=== PATIENT | female | born 1980 | race Caucasian/White ===

== ENCOUNTER 2020-01-06 16:59 | Emergency (ER) | payer OTHER ==
[2020-01-06 18:47] LABS: CHLORIDE,CL 106 mmol/L (98-107); SODIUM,NA 142 mmol/L (136-145)
[2020-01-06 18:58] LABS: ANION GAP 12.2 mmol/L (10-20)
[2020-01-06] MEDS ORDERED: Iopamidol 612 MG/ML 100 ML Bottle IVPUSH ONE (19:10)
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
[2020-01-06] MEDS ORDERED: Take Home: Sulfamethoxazole/Trimethoprim 800-160 MG Tab, 2 Tab Pack PO ONE (20:14)
[2020-01-06] MEDS ORDERED: Sulfamethoxazole/Trimethoprim 800-160 MG Tab PO ONE ×2 (20:50)
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
== END 2020-01-06 21:07 | disposition home or self-care (01) ==
LOC: VM.ED 16:59
DX: S30.1XXA Contusion of abdominal wall, initial encounter (principal); N39.0 Urinary tract infection, site not specified; E10.9 Type 1 diabetes mellitus without complications; Z88.8 Allergy status to other drugs, medicaments and biological substances; W51.XXXA Accidental striking against or bumped into by another person, initial encounter
CPT/HCPCS: 36415; 74177; 80053; 81001; 81025; 85025; 85610; 99284; A9270; Q9967

== ENCOUNTER 2020-02-13 08:44 | Emergency (ER) | payer OTHER ==
[2020-02-13] MEDS ORDERED: Sodium Chloride 0.9% 10 ML Syringe FLUSH PRN (09:10)
[2020-02-13] MEDS ORDERED: Ketorolac 30 MG/ML SDV IVPUSH ONE (09:15)
[2020-02-13] MEDS ORDERED: Ondansetron 4 MG/2 ML SDV IVPUSH ONE (09:19)
[2020-02-13] MEDS ORDERED: Sodium Chloride 0.9% 1,000 ML IV ONE (09:28)
--- NOTE | 2020-02-13 09:28 | EDM.PDOC ---
ED HPI GENERAL MEDICAL PROBLEM - General Chief Complaint: Abdominal Pain Stated Complaint: LOWER ABDOMINAL PAIN Time Seen by Provider: 02/13/20 08:55 Source of Information: Reports: Patient History Limitations: Reports: No Limitations - History of Present Illness INITIAL COMMENTS - FREE TEXT/NARRATIVE: Patient comes into the emergency department with complaints of urinary hesitancy , frequency, urgency, burning sensation. Patient also states that she has lower abdominal pain and left flank pain. Patient does have a standing history of UTI and kidney infections in the past. Patient states she woke up around 430 this morning and noticed that she had hesitancy and frequency but also at the same time she was unable to go. She was able to go decrease in amount. States she is also unable to get comfortable for the pain is sharp shooting and stabbing. Endorses feeling nauseated with this but has not vomited. Patient denies any fever, chest pain, shortness of breath, or peripheral edema. She denies any symptoms that make it better or worse. Location: Reports: Pelvis Severity: Severe Improves with: Reports: None Worsens with: Reports: None Associated Symptoms: Reports: No Other Symptoms Lower Abdominal Pain Score (Numeric/FACES): 10 - Related Data Allergies Allergy/AdvReac Type Severity Reaction Status Date / Time marijuana Allergy Anaphylactic Verified 02/13/20 09:03 Shock Home Meds: Home Meds Montelukast Sodium [Singulair] 10 mg PO DAILY 01/06/20 [History] Ciprofloxacin HCl [Cipro] 500 mg PO BID #14 tablet 02/13/20 [Rx] metFORMIN [Glucophage] 500 mg PO DAILY 02/13/20 [History] Past Medical History Endocrine/Metabolic History: Reports: Diabetes, Type I ED ROS GENERAL - Review of Systems Review Of Systems: Comprehensive ROS is negative, except as noted in HPI. Constitutional: Reports: No Symptoms HEENT: Reports: No Symptoms Respiratory: Reports: No Symptoms Cardiovascular: Reports: No Symptoms Endocrine: Reports: No Symptoms Musculoskeletal: Reports: No Symptoms Skin: Reports: No Symptoms Neurological: Reports: No Symptoms Psychiatric: Reports: No Symptoms Hematologic/Lymphatic: Reports: No Symptoms Immunologic: Reports: No Symptoms ED EXAM, RENAL/ - Physical Exam Exam: See Below Exam Limited By: No Limitations General Appearance: Alert, WD/WN, Moderate Distress Head: Atraumatic, Normocephalic Neck: Normal Inspection, Supple, Non-Tender, Full Range of Motion Respiratory/Chest: No Respiratory Distress, Lungs Clear, Normal Breath Sounds, No Accessory Muscle Use, Chest Non-Tender Cardiovascular: Normal Peripheral Pulses, Regular Rate, Rhythm, No Edema, No Murmur GI/Abdominal: Guarding, Tender. No: Distended, Rigid, Rebound, Abnormal Bowel Sounds Back Exam: Normal Inspection, Full Range of Motion Extremities: Normal Inspection, Normal Range of Motion, Non-Tender, No Pedal Edema, Normal Capillary Refill Neurological: Alert, Oriented Psychiatric: Normal Affect, Normal Mood Skin Exam: Warm, Dry, Intact Course - Vital Signs Last Recorded V/S: Last Vital Signs Temp 35 C L 02/13/20 09:05 Pulse 82 02/13/20 09:05 Resp 16 02/13/20 09:05 BP 129/82 02/13/20 09:05 Pulse Ox 98 02/13/20 09:05 - Orders/Labs/Meds Orders: Active Orders 24 hr Category Date Time Status CULTURE URINE [RM] Stat Lab 02/13/20 09:18 Received Sodium Chloride 0.9% [Saline Flush] Med 02/13/20 09:10 Active 10 ml FLUSH ASDIRECTED PRN Peripheral IV Insertion Adult [OM.PC] Stat Oth 02/13/20 09:10 Ordered Medication Orders Sodium Chloride (Saline Flush) 10 ml FLUSH ASDIRECTED PRN PRN Reason: Keep Vein Open Labs: Laboratory Tests 02/13/20 02/13/20 02/13/20 Range/Units 09:18 09:23 09:23 WBC 14.3 H (4.0-10.0) x10^3/uL RBC 4.21 (4.00-5.50) x10^6/uL Hgb 13.3 (12.0-16.0) g/dL Hct 39.1 (33.0-47.0) % MCV 92.9 (78.0-93.0) fL MCH 31.6 (26.0-32.0) pg MCHC 34.0 (32.0-36.0) g/dL RDW Coeff of Gala 11.2 (10.0-15.0) % Plt Count 313 (130-400) x10^3/uL Neut % (Auto) 79.5 (50.0-80.0) % Lymph % (Auto) 14.9 L (25.0-50.0) % [place] % (Auto) 5.1 (2.0-11.0) % Eos % (Auto) 0.3 (0.0-4.0) % Baso % (Auto) 0.2 (0.2-1.2) % PT 10.4 (10.0-12.8) SEC INR 0.9 L (2.0-3.5) Sodium (136-145) mmol/L Potassium (3.5-5.1) mmol/L Chloride (98-107) mmol/L Carbon Dioxide (21-32) mmol/L Anion Gap (10-20) mmol/L BUN (7-18) mg/dL Creatinine (0.55-1.02) mg/dL Est Cr Clr Drug Dosing mL/min Estimated GFR (MDRD) Glucose (74-106) mg/dL Calcium (8.5-10.1) mg/dL Corrected Calcium (8.5-10.1) mg/dL Total Bilirubin (0.2-1.0) mg/dL AST (15-37) U/L ALT (14-59) U/L Alkaline Phosphatase (46-116) U/L Total Protein (6.4-8.2) g/dL Albumin (3.4-5.0) g/dL Globulin Albumin/Globulin Ratio Urine Color Brown H (YELLOW) Urine Appearance Slightly cloudy H (CLEAR) Urine pH 6.0 (5.0-8.0) Ur Specific [place] >=1.030 Urine Protein 100 H (NEGATIVE) mg/dL Urine Glucose (UA) Negative (NEGATIVE) mg/dL Urine Ketones Trace H (NEGATIVE) mg/dL Urine Occult Blood Large H (NEGATIVE) Urine Nitrite Negative (NEGATIVE) Urine Bilirubin Small H (NEGATIVE) Urine Urobilinogen 0.2 (0.2) EU/dL Ur Leukocyte Esterase Small H (NEGATIVE) Urine RBC >100 H (NOT SEEN) /HPF Urine WBC 40-50 H (NOT SEEN) /HPF Ur Squamous Epith Cells Rare (NEGATIVE) /HPF Urine Bacteria Few H (NEGATIVE) /HPF Urine Mucus Rare H (NEGATIVE) /LPF 02/13/20 Range/Units 09:23 WBC (4.0-10.0) x10^3/uL RBC (4.00-5.50) x10^6/uL Hgb (12.0-16.0) g/dL Hct (33.0-47.0) % MCV (78.0-93.0) fL MCH (26.0-32.0) pg MCHC (32.0-36.0) g/dL RDW Coeff of Gala (10.0-15.0) % Plt Count (130-400) x10^3/uL Neut % (Auto) (50.0-80.0) % Lymph % (Auto) (25.0-50.0) % [place] % (Auto) (2.0-11.0) % Eos % (Auto) (0.0-4.0) % Baso % (Auto) (0.2-1.2) % PT (10.0-12.8) SEC INR (2.0-3.5) Sodium 140 (136-145) mmol/L Potassium 4.3 (3.5-5.1) mmol/L Chloride 103 (98-107) mmol/L Carbon Dioxide 26 (21-32) mmol/L Anion Gap 15.3 (10-20) mmol/L BUN 15 (7-18) mg/dL Creatinine 1.0 (0.55-1.02) mg/dL Est Cr Clr Drug Dosing 78.93 mL/min Estimated GFR (MDRD) > 60 Glucose 129 H (74-106) mg/dL Calcium 8.9 (8.5-10.1) mg/dL Corrected Calcium 9.38 (8.5-10.1) mg/dL Total Bilirubin 0.5 (0.2-1.0) mg/dL AST 17 (15-37) U/L ALT 24 (14-59) U/L Alkaline Phosphatase 77 (46-116) U/L Total Protein 7.1 (6.4-8.2) g/dL Albumin 3.4 (3.4-5.0) g/dL Globulin 3.7 Albumin/Globulin Ratio 0.92 Urine Color (YELLOW) Urine Appearance (CLEAR) Urine pH (5.0-8.0) Ur Specific [place] Urine Protein (NEGATIVE) mg/dL Urine Glucose (UA) (NEGATIVE) mg/dL Urine Ketones (NEGATIVE) mg/dL Urine Occult Blood (NEGATIVE) Urine Nitrite (NEGATIVE) Urine Bilirubin (NEGATIVE) Urine Urobilinogen (0.2) EU/dL Ur Leukocyte Esterase (NEGATIVE) Urine RBC (NOT SEEN) /HPF Urine WBC (NOT SEEN) /HPF Ur Squamous Epith Cells (NEGATIVE) /HPF Urine Bacteria (NEGATIVE) /HPF Urine Mucus (NEGATIVE) /LPF Meds: Medications Generic Name Dose Route Start Last Admin Trade Name Lam PRN Reason Stop Dose Admin Sodium Chloride 10 ml 02/13/20 09:10 Saline Flush FLUSH ASDIRECTED PRN Keep Vein Open Discontinued Medications Generic Name Dose Route Start Last Admin Trade Name Freq PRN Reason Stop Dose Admin Ceftriaxone Sodium 1 gm 02/13/20 09:59 02/13/20 10:23 Rocephin IVPUSH 02/13/20 10:00 1 gm ONETIME ONE Administration Sodium Chloride 1,000 mls @ 1,000 mls/hr 02/13/20 09:28 02/13/20 09:37 Normal Saline IV 02/13/20 10:27 1,000 mls/hr ONETIME ONE Administration Ketorolac Tromethamine 30 mg 02/13/20 09:15 02/13/20 09:37 Toradol IVPUSH 02/13/20 09:16 30 mg ONETIME ONE Administration Ondansetron HCl 4 mg 02/13/20 09:19 02/13/20 09:37 Zofran IVPUSH 02/13/20 09:20 4 mg ONETIME ONE Administration - Re-Assessments/Exams Free Text/Narrative Re-Assessment/Exam: 02/13/20 10:39 feels better with fluids and pain medications. Patient is ready for discharge Departure - Departure Time of Disposition: 10:40 Disposition: Home, Self-Care 01 Condition: Good Clinical Impression: Pyelonephritis - Discharge Information *PRESCRIPTION DRUG MONITORING PROGRAM REVIEWED*: Not Applicable *COPY OF PRESCRIPTION DRUG MONITORING REPORT IN PATIENT CHERRY: Not Applicable Prescriptions: Ciprofloxacin HCl [Cipro] 500 mg PO BID #14 tablet Instructions: Pyelonephritis, Adult Forms: ED Department Discharge, ED Return to Work/School Form Additional Instructions: 1. rest 2. increase your water intake 3. Take all antibiotics as prescribed even if feeling better 4. Take a probiotic while on antibiotics to help promote healthy GI motility 5. Activity and diet as tolerated 6. Can use Ibuprofen and Tylenol for any fever or discomfort 7. Follow up with your PCP or return if symptoms progress or worsen 8. Education provided to you regarding your illness, probiotics, antibiotic prescribed 9. Call with any questions or concerns Sepsis Event Note - Focused Exam Vital Signs: Vital Signs Temp Pulse Resp BP Pulse Ox 02/13/20 09:05 35 C L 82 16 129/82 98 Date Exam was Performed: 02/13/20 Time Exam was Performed: 10:36 - Problem List Review Problem List Initiated/Reviewed/Updated: Yes - My Orders Last 24 Hours: My Active Orders 02/13/20 09:10 Sodium Chloride 0.9% [Saline Flush] 10 ml FLUSH ASDIRECTED PRN Peripheral IV Insertion Adult [OM.PC] Stat 02/13/20 09:18 CULTURE URINE [RM] Stat - Assessment/Plan Last 24 Hours: My Active Orders 02/13/20 09:10 Sodium Chloride 0.9% [Saline Flush] 10 ml FLUSH ASDIRECTED PRN Peripheral IV Insertion Adult [OM.PC] Stat 02/13/20 09:18 CULTURE URINE [RM] Stat Assessment:: 1. urine retention 2. flank pain Plan: 1. Labs completed in the ER. Results reviewed with the patient 2. CT scan completed in the ER. Results reviewed with the patient 3. IV initiated in the emergency department 4. IV fluids provided 5. Pain medication given for severe pain and discomfort-Ketoralac 6. Zofran given in the ER to help with nausea 7. Rocephin IV given in ER 8. Patient will be transferred to a higher level of care needing further medical and/or surgical interventions 9. Patient and nursing staff was updated regarding the plan of care 10. Patient and family are agreeable to the above plan of care 11. All questions and concerns were addressed with the patient and family prior to discharge 12. Cipro script sent with the patient
[2020-02-13 09:49] LABS: CHLORIDE,CL 103 mmol/L (98-107); SODIUM,NA 140 mmol/L (136-145)
[2020-02-13 09:50] LABS: ANION GAP 15.3 mmol/L (10-20)
[2020-02-13] MEDS ORDERED: cefTRIAXone 1 GM Vial IVPUSH ONE (09:59)
--- NOTE | 2020-02-13 10:34 | CT ---
[id number] CT/CT Abdomen Pelvis WO IV EXAM: ABDOMEN AND PELVIS CT WITHOUT CONTRAST INDICATION: Abdominal pain, flank pain and urinary retention. COMPARISON: January 06, 2020. DISCUSSION: The urinary bladder is decompressed by a Streeter catheter. No renal/ureteral calculi or hydronephrosis is seen on either side. The liver is mildly enlarged. Unenhanced images of the pancreas, spleen, adrenal glands, gallbladder, small bowel, large bowel the appendix are unremarkable. No free air, free fluid or adenopathy is identified. The osseous structures are unremarkable. IMPRESSION: 1. No acute findings. Josh John MD 02/13/20 1033 Thank you for allowing us to participate in the care of your patient.
== END 2020-02-13 10:50 | disposition home or self-care (01) ==
LOC: VM.ED 08:44
DX: N12 Tubulo-interstitial nephritis, not specified as acute or chronic (principal); E10.9 Type 1 diabetes mellitus without complications; Z79.84 Long term (current) use of oral hypoglycemic drugs; Z88.5 Allergy status to narcotic agent; Z79.899 Other long term (current) drug therapy; R33.9 Retention of urine, unspecified
CPT/HCPCS: 51798; 74176; 80053; 81001; 85025; 85610; 87086; 96361; 96374; 96375; 99284-25; J0696; J1885; J2405; J7030

== ENCOUNTER 2020-05-11 11:36 | Emergency (ER) | payer OTHER ==
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
--- NOTE | 2020-05-11 12:51 | CR ---
[id number] RAD/RAD Shoulder Left 2V Min EXAM: 5 VIEWS LEFT SHOULDER. INDICATION: FALL. COMPARISON: None. DISCUSSION: No fracture, dislocation or other acute osseous abnormality. IMPRESSION: 1. No acute osseous abnormalities. Abad Lowe DO 05/11/20 1249 Thank you for allowing us to participate in the care of your patient.
== END 2020-05-11 12:34 | disposition home or self-care (01) ==
LOC: VM.ED 11:36
DX: S40.012A Contusion of left shoulder, initial encounter (principal); E10.9 Type 1 diabetes mellitus without complications; Z79.84 Long term (current) use of oral hypoglycemic drugs; Z79.899 Other long term (current) drug therapy; Z88.5 Allergy status to narcotic agent; W22.8XXA Striking against or struck by other objects, initial encounter
CPT/HCPCS: 73030-LT; 99283-25; 99283-GF

== ENCOUNTER 2020-07-16 18:47 | Emergency (ER) | payer OTHER ==
--- NOTE | 2020-07-18 02:00 | EDM.PDOC ---
ED HPI GENERAL MEDICAL PROBLEM - General Chief Complaint: General Stated Complaint: N/V, Increased blood sugars, fever Time Seen by Provider: 07/16/20 19:40 Source of Information: Reports: Patient History Limitations: Reports: No Limitations - History of Present Illness INITIAL COMMENTS - FREE TEXT/NARRATIVE: Pt. presents to ER with complaints of diarrhea, nausea, fever, chills, and congestion over the past 2 days. She has not been vomiting. Pt. is a type 1 diabetic and states that her blood sugar has been elevated recently. Denies any chest pain or shortness of breath. Pt. states that she feels the same as when she had influenza. Denies any abdominal pain. No bloody stools. Pt. recently travelled to [place] for a , and states that several people at the are now positive for Covid 19. Onset Date: 07/16/20 Location: Reports: Generalized Associated Symptoms: Reports: Cough, Fever/Chills, Malaise, Nausea/Vomiting (nausea only). Denies: Chest Pain, cough w sputum, Diaphoresis, Headaches Treatments ENVIRONMENTAL SYSTEMS COORDINATOR: Reports: Acetaminophen - Related Data Allergies Allergy/AdvReac Type Severity Reaction Status Date / Time marijuana Allergy Severe Anaphylactic Verified 05/11/20 11:53 Shock Home Meds: Home Meds Montelukast Sodium [Singulair] 10 mg PO DAILY 01/06/20 [History] metFORMIN [Glucophage] 500 mg PO DAILY 02/13/20 [History] Insulin Aspart (Niacinamide) [Fiasp 100 Unit/ml Vial] 100 units SQ DAILY 05/11/20 [History] Past Medical History Genitourinary History: Reports: UTI, Recurrent Endocrine/Metabolic History: Reports: Diabetes, Type I Social & Family History - Tobacco Use Smoking Status *Q: Unknown Ever Smoked ED ROS GENERAL - Review of Systems Review Of Systems: See Below Constitutional: Reports: Fever, Fatigue HEENT: Reports: No Symptoms Respiratory: Reports: Cough Cardiovascular: Reports: No Symptoms Endocrine: Reports: No Symptoms GI/Abdominal: Reports: Diarrhea, Nausea. Denies: Black Stool, Bloody Stool, Distension, Hematemesis, Hematochezia, Vomiting : Reports: No Symptoms Musculoskeletal: Reports: No Symptoms Skin: Reports: No Symptoms Neurological: Reports: No Symptoms Psychiatric: Reports: No Symptoms Hematologic/Lymphatic: Reports: No Symptoms Immunologic: Reports: No Symptoms ED EXAM, GENERAL - Physical Exam Exam: See Below Exam Limited By: No Limitations General Appearance: Alert, WD/WN, No Apparent Distress Eye Exam: Bilateral Eye: EOMI, Normal Fundi, Normal Inspection, PERRL Ears: Normal External Exam, Normal Canal, Hearing Grossly Normal, Normal TMs Nose: Normal Inspection, Normal Mucosa, No Blood Throat/Mouth: Normal Inspection, Normal Lips, Normal Teeth, Normal Gums, Normal Oropharynx, Normal Voice, No Airway Compromise Head: Atraumatic, Normocephalic Neck: Normal Inspection, Supple, Non-Tender, Full Range of Motion Respiratory/Chest: No Respiratory Distress, Lungs Clear, Normal Breath Sounds, No Accessory Muscle Use, Chest Non-Tender Cardiovascular: Normal Peripheral Pulses, Regular Rate, Rhythm, No Edema, No Gallop, No JVD, No Murmur GI/Abdominal: Normal Bowel Sounds, Soft, Non-Tender, No Organomegaly, No Distention, No Mass (Female) Exam: Deferred Rectal (Female) Exam: Deferred Back Exam: Normal Inspection, Full Range of Motion Extremities: Normal Inspection, Normal Range of Motion, Non-Tender, No Pedal Edema, Normal Capillary Refill Neurological: Alert, Oriented, CN II-XII Intact, Normal Cognition, Normal Gait, Normal Reflexes, No Motor/Sensory Deficits Psychiatric: Normal Affect, Normal Mood Skin Exam: Warm, Dry, Intact, Normal Color, No Rash Lymphatic: No Adenopathy Course - Vital Signs Last Recorded V/S: Last Vital Signs Temp 37.0 C 07/16/20 19:05 Pulse 85 07/16/20 19:05 Resp 16 07/16/20 19:05 BP 155/95 H 07/16/20 19:05 Pulse Ox 98 07/16/20 19:05 - Orders/Labs/Meds Labs: Laboratory Tests 07/16/20 Range/Units 19:13 SARS CoV-2 RNA Rapid MALDONADO Negative (NEGATIVE) Departure - Departure Time of Disposition: 20:30 Disposition: Home, Self-Care 01 Clinical Impression: Viral illness - Discharge Information Instructions: Viral Illness, Adult Referrals: Nina Leggett MD [Primary Care Provider] - Forms: ED Department Discharge Additional Instructions: Home to rest. Tylenol as needed for fever. Drink plenty of fluids. Check your blood sugar more frequently. It is still possible that you have covid 19. Sometimes the test isn't positive right away. If you are still having symptoms in the next 4-5 days, or if you have worsening symptoms, follow-up in clinic or return to ER. Mikel for 14 days, or 10 days after your last fever, since you have been exposed to covid 19. Sepsis Event Note (ED) - Evaluation Sepsis Screening Result: No Definite Risk
== END 2020-07-16 20:54 | disposition home or self-care (01) ==
LOC: VM.ED 18:47
DX: B34.9 Viral infection, unspecified (principal); E10.9 Type 1 diabetes mellitus without complications; Z91.09 Other allergy status, other than to drugs and biological substances; Z20.828 Contact with and (suspected) exposure to other viral communicable diseases
CPT/HCPCS: 87804; 87804-59; 99283; U0002

== ENCOUNTER 2021-08-02 10:02 | Emergency (ER) | payer OTHER ==
[2021-08-02] MEDS ORDERED: Ondansetron 4 MG/2 ML SDV IVPUSH ONE (10:18)
--- NOTE | 2021-08-02 10:18 | EDM.PDOC ---
ED HPI GENERAL MEDICAL PROBLEM - General Chief Complaint: Diabetic Complaint Stated Complaint: hypoglycemia Time Seen by Provider: 08/02/21 10:02 Source of Information: Reports: EMS History Limitations: Reports: No Limitations - History of Present Illness INITIAL COMMENTS - FREE TEXT/NARRATIVE: Marie is a 41 year female who presents per EMS due to hypoglycemia. Boyfriend called EMS after noting her alarm on her glucose monitor. EMS noted a low level on arrival and gave an amp of D50. Started to respond after and blood sugar had improved to 55. On arrival, patient disoriented. Starting to become more alert and conversive. No recall of events this am at first. Complaining of nausea. 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 Unsure of last meal. Incontinent of urine. Fiance did tell EMS that it appeared she was having seizure activity. As patient more becomes more alert and conversive, states she ate for supper before going to work and had a snack after getting off work this am before going to bed. Got home at 0600 and went to bed. Occasionally does have lows that she does not detect if she is in bed and sleeping and "happen every once in a while". Typically can control it better if awake and up as can eat to control it. Monitor when reads low typically means her sugar is under 30. Has been a type I diabetic for years. Had an insulin pump for many years. Switched to a new kind of monitor about 6 months ago. Started working nights on the and "my monitor can't quite figure out my schedule and sugars have been off". Onset: Today, Sudden Duration: Minutes: Location: Reports: Generalized Associated Symptoms: Reports: Confusion, Fever/Chills, Malaise, Nausea/Vomiting. Denies: Headaches, Shortness of Breath Treatments ANIMAL ATTENDANTS AND TRAINERS: Reports: Other Medication(s), See EMS Report Other Treatments ANIMAL ATTENDANTS AND TRAINERS: D50 - Related Data Allergies Allergy/AdvReac Type Severity Reaction Status Date / Time marijuana Allergy Severe Anaphylactic Verified 08/02/21 10:18 Shock Home Meds: Home Meds Montelukast Sodium [Singulair] 10 mg PO DAILY 01/06/20 [History] metFORMIN [Glucophage] 500 mg PO DAILY 02/13/20 [History] Insulin Aspart (Niacinamide) [Fiasp 100 Unit/ml Vial] 100 units SQ DAILY 05/11/20 [History] Past Medical History Genitourinary History: Reports: UTI, Recurrent Endocrine/Metabolic History: Reports: Diabetes, Type I ED ROS GENERAL - Review of Systems Review Of Systems: See Below Constitutional: Reports: Chills, Malaise, Weakness. Denies: Fever, Decreased Appetite HEENT: Denies: Ear Pain, Rhinitis, Sinus Problem, Throat Pain, Vertigo Respiratory: Denies: Shortness of Breath Cardiovascular: Denies: Chest Pain, Edema, Lightheadedness Endocrine: Reports: Fatigue GI/Abdominal: Reports: Nausea. Denies: Abdominal Pain, Constipation, Diarrhea, Vomiting : Reports: Incontinence Musculoskeletal: Reports: No Symptoms Skin: Reports: No Symptoms Neurological: Reports: Confusion, Seizure, Weakness Psychiatric: Reports: No Symptoms ED EXAM GENERAL NO PERIP PULSE - Physical Exam Exam: See Below Exam Limited By: No Limitations General Appearance: No Apparent Distress, Lethargic (on arrival, becomes more alert while assessing) Eye Exam: Bilateral Eye: EOMI, PERRL Ears: Normal External Exam, Normal TMs Nose: Normal Inspection, Normal Mucosa, No Blood Throat/Mouth: Normal Inspection, Normal Oropharynx Head: Normocephalic Neck: Normal Inspection, Supple, Non-Tender Respiratory/Chest: No Respiratory Distress, Lungs Clear, Normal Breath Sounds Cardiovascular: Regular Rate, Rhythm GI/Abdominal: Normal Bowel Sounds, Soft, Non-Tender Extremities: Normal Inspection, No Pedal Edema Course - Vital Signs Last Recorded V/S: Last Vital Signs Temp 97.6 F 08/02/21 10:02 Pulse 81 08/02/21 10:02 Resp 18 08/02/21 10:02 BP 111/72 08/02/21 10:02 Pulse Ox 99 08/02/21 10:02 - Orders/Labs/Meds Orders: Active Orders 24 hr Category Date Time Status Dextrose 5%-0.9% NaCl [Dextrose 5%-Normal Saline] 1,000 Med 08/02/21 10:30 Active ml IV ASDIRECTED Medication Orders Dextrose/Sodium Chloride (Dextrose 5%-Normal Saline) 1,000 mls @ 100 mls/hr IV ASDIRECTED XAVI Last Admin: 08/02/21 10:27 Dose: 100 mls/hr Documented by: DAQUAN Labs: Laboratory Tests 08/02/21 08/02/21 08/02/21 Range/Units 10:07 10:18 10:18 WBC 9.0 (4.0-10.0) x10^3/uL RBC 4.30 (4.00-5.50) x10^6/uL Hgb 13.8 (12.0-16.0) g/dL Hct 41.0 (33.0-47.0) % MCV 95.3 H (78.0-93.0) fL MCH 32.1 H (26.0-32.0) pg MCHC 33.7 (32.0-36.0) g/dL RDW Coeff of Gala 11.6 (10.0-15.0) % Plt Count 303 (130-400) x10^3/uL Immature Gran % (Auto) 0.20 (0.00-0.43) % Neut % (Auto) 64.3 (50.0-80.0) % Lymph % (Auto) 25.8 (25.0-50.0) % [place]assen % (Auto) 8.2 (2.0-11.0) % Eos % (Auto) 0.9 (0.0-4.0) % Baso % (Auto) 0.6 (0.2-1.2) % Neut # (Auto) 5.8 (1.8-7.7) x10^3/uL Lymph # (Auto) 2.3 (1.0-4.8) x10^3/uL [place]assen # (Auto) 0.7 (0.0-0.8) x10^3/uL Eos # (Auto) 0.1 (0.0-0.5) x10^3/uL Baso # (Auto) 0.1 (0.0-0.2) x10^3/uL Immature Gran # (Auto) 0.02 (0.00-0.07) x10^3/uL Sodium 141 (136-145) mmol/L Potassium 3.5 (3.5-5.1) mmol/L Chloride 106 (98-107) mmol/L Carbon Dioxide 26 (21-32) mmol/L Anion Gap 12.5 (5-15) mmol/L BUN 17 (7-18) mg/dL Creatinine 1.0 (0.55-1.02) mg/dL Est Cr Clr Drug Dosing TNP Estimated GFR (MDRD) > 60 Glucose 39 L* (70-99) mg/dL POC Glucose 89 (70-99) mg/dL Calcium 8.8 (8.5-10.1) mg/dL Corrected Calcium 9.4 (8.5-10.1) mg/dL Total Bilirubin 0.2 (0.2-1.0) mg/dL AST 17 (15-37) U/L ALT 34 (14-59) U/L Alkaline Phosphatase 86 (46-116) U/L Troponin I High Sens 5 (<=51) ng/L C-Reactive Protein < 0.2 (<=0.9) mg/dL Total Protein 7.6 (6.4-8.2) g/dL Albumin 3.3 L (3.4-5.0) g/dL Globulin 4.3 Albumin/Globulin Ratio 0.77 Urine Color (YELLOW) Urine Appearance (CLEAR) Urine pH (5.0-8.0) Ur Specific [place] Urine Protein (NEGATIVE) mg/dL Urine Glucose (UA) (NEGATIVE) mg/dL Urine Ketones (NEGATIVE) mg/dL Urine Occult Blood (NEGATIVE) Urine Nitrite (NEGATIVE) Urine Bilirubin (NEGATIVE) Urine Urobilinogen (0.2) EU/dL Ur Leukocyte Esterase (NEGATIVE) Urine RBC (NOT SEEN) /HPF Urine WBC (NOT SEEN) /HPF Ur Squamous Epith Cells (NOT SEEN) /HPF Urine Bacteria (NOT SEEN) /HPF Urine Mucus (NOT SEEN) /LPF 08/02/21 08/02/21 08/02/21 Range/Units 10:38 10:53 11:42 WBC (4.0-10.0) x10^3/uL RBC (4.00-5.50) x10^6/uL Hgb (12.0-16.0) g/dL Hct (33.0-47.0) % MCV (78.0-93.0) fL MCH (26.0-32.0) pg MCHC (32.0-36.0) g/dL RDW Coeff of Gala (10.0-15.0) % Plt Count (130-400) x10^3/uL Immature Gran % (Auto) (0.00-0.43) % Neut % (Auto) (50.0-80.0) % Lymph % (Auto) (25.0-50.0) % Lassen % (Auto) (2.0-11.0) % Eos % (Auto) (0.0-4.0) % Baso % (Auto) (0.2-1.2) % Neut # (Auto) (1.8-7.7) x10^3/uL Lymph # (Auto) (1.0-4.8) x10^3/uL Lassen # (Auto) (0.0-0.8) x10^3/uL Eos # (Auto) (0.0-0.5) x10^3/uL Baso # (Auto) (0.0-0.2) x10^3/uL Immature Gran # (Auto) (0.00-0.07) x10^3/uL Sodium (136-145) mmol/L Potassium (3.5-5.1) mmol/L Chloride (98-107) mmol/L Carbon Dioxide (21-32) mmol/L Anion Gap (5-15) mmol/L BUN (7-18) mg/dL Creatinine (0.55-1.02) mg/dL Est Cr Clr Drug Dosing Estimated GFR (MDRD) Glucose (70-99) mg/dL POC Glucose 30 L* 155 H 126 H (70-99) mg/dL Calcium (8.5-10.1) mg/dL Corrected Calcium (8.5-10.1) mg/dL Total Bilirubin (0.2-1.0) mg/dL AST (15-37) U/L ALT (14-59) U/L Alkaline Phosphatase (46-116) U/L Troponin I High Sens (<=51) ng/L C-Reactive Protein (<=0.9) mg/dL Total Protein (6.4-8.2) g/dL Albumin (3.4-5.0) g/dL Globulin Albumin/Globulin Ratio Urine Color (YELLOW) Urine Appearance (CLEAR) Urine pH (5.0-8.0) Ur Specific [place] Urine Protein (NEGATIVE) mg/dL Urine Glucose (UA) (NEGATIVE) mg/dL Urine Ketones (NEGATIVE) mg/dL Urine Occult Blood (NEGATIVE) Urine Nitrite (NEGATIVE) Urine Bilirubin (NEGATIVE) Urine Urobilinogen (0.2) EU/dL Ur Leukocyte Esterase (NEGATIVE) Urine RBC (NOT SEEN) /HPF Urine WBC (NOT SEEN) /HPF Ur Squamous Epith Cells (NOT SEEN) /HPF Urine Bacteria (NOT SEEN) /HPF Urine Mucus (NOT SEEN) /LPF 08/02/21 08/02/21 Range/Units 11:49 12:09 WBC (4.0-10.0) x10^3/uL RBC (4.00-5.50) x10^6/uL Hgb (12.0-16.0) g/dL Hct (33.0-47.0) % MCV (78.0-93.0) fL MCH (26.0-32.0) pg MCHC (32.0-36.0) g/dL RDW Coeff of Gala (10.0-15.0) % Plt Count (130-400) x10^3/uL Immature Gran % (Auto) (0.00-0.43) % Neut % (Auto) (50.0-80.0) % Lymph % (Auto) (25.0-50.0) % Lassen % (Auto) (2.0-11.0) % Eos % (Auto) (0.0-4.0) % Baso % (Auto) (0.2-1.2) % Neut # (Auto) (1.8-7.7) x10^3/uL Lymph # (Auto) (1.0-4.8) x10^3/uL [place] # (Auto) (0.0-0.8) x10^3/uL Eos # (Auto) (0.0-0.5) x10^3/uL Baso # (Auto) (0.0-0.2) x10^3/uL Immature Gran # (Auto) (0.00-0.07) x10^3/uL Sodium (136-145) mmol/L Potassium (3.5-5.1) mmol/L Chloride (98-107) mmol/L Carbon Dioxide (21-32) mmol/L Anion Gap (5-15) mmol/L BUN (7-18) mg/dL Creatinine (0.55-1.02) mg/dL Est Cr Clr Drug Dosing Estimated GFR (MDRD) Glucose (70-99) mg/dL POC Glucose 200 H (70-99) mg/dL Calcium (8.5-10.1) mg/dL Corrected Calcium (8.5-10.1) mg/dL Total Bilirubin (0.2-1.0) mg/dL AST (15-37) U/L ALT (14-59) U/L Alkaline Phosphatase (46-116) U/L Troponin I High Sens (<=51) ng/L C-Reactive Protein (<=0.9) mg/dL Total Protein (6.4-8.2) g/dL Albumin (3.4-5.0) g/dL Globulin Albumin/Globulin Ratio Urine Color Light yellow (YELLOW) Urine Appearance Clear (CLEAR) Urine pH 6.5 (5.0-8.0) Ur Specific [place] 1.020 Urine Protein Trace H (NEGATIVE) mg/dL Urine Glucose (UA) 250 H (NEGATIVE) mg/dL Urine Ketones Negative (NEGATIVE) mg/dL Urine Occult Blood Trace-intact H (NEGATIVE) Urine Nitrite Negative (NEGATIVE) Urine Bilirubin Negative (NEGATIVE) Urine Urobilinogen 0.2 (0.2) EU/dL Ur Leukocyte Esterase Negative (NEGATIVE) Urine RBC 0-5 (NOT SEEN) /HPF Urine WBC 0-5 (NOT SEEN) /HPF Ur Squamous Epith Cells Rare (NOT SEEN) /HPF Urine Bacteria Not seen (NOT SEEN) /HPF Urine Mucus Not seen (NOT SEEN) /LPF Meds: Medications Generic Name Dose Route Start Last Admin Trade Name Freq PRN Reason Stop Dose Admin Dextrose/Sodium Chloride 1,000 mls @ 100 mls/hr 08/02/21 10:30 08/02/21 10:27 Dextrose 5%-Normal Saline IV 100 mls/hr ASDIRECTED XAVI Administration Discontinued Medications Generic Name Dose Route Start Last Admin Trade Name Freq PRN Reason Stop Dose Admin Ondansetron HCl 4 mg 08/02/21 10:18 08/02/21 10:27 Ondansetron 4 Mg/2 Ml Sdv IVPUSH 08/02/21 10:19 4 mg ONETIME ONE Administration - Re-Assessments/Exams Free Text/Narrative Re-Assessment/Exam: 08/02/21 Patient became more responsive as sugar increased to 80s. Started IV D5NS but soon after patient reported diaphoresis and feeling lightheaded. Blood sugar again dropped to low. 1/2 amp of D50 given and increased IV rate to 999. 1100- Doing well, conversing with fiance. Getting headache from increasing blood sugar. States "normal when this happens". 08/02/21 11:12 Discussed past history with patient and keeping blood sugars within range after an event like this. STates she needs to eat often and be proactive to keep it up in the next 2 days. Was on a different type of insulin in the past and did well with that as relates she cid through insulin so fast but it didn't work with her dual pump so was switched back to novolog. Has done well with that for some time now. Denies feeling ill or having any other changes as of late to explain the rapid change today. 08/02/21 12:47 Blood sugar 225 on machine. Has eaten a good lunch after it had dropped to 120 and was concerned. Does feel stable now, wants to return home Departure - Departure Time of Disposition: 12:48 Disposition: Home, Self-Care 01 Clinical Impression: Hypoglycemia - Discharge Information *PRESCRIPTION DRUG MONITORING PROGRAM REVIEWED*: No *COPY OF PRESCRIPTION DRUG MONITORING REPORT IN PATIENT CHERRY: No Instructions: Hypoglycemia Forms: ED Department Discharge Additional Instructions: 1. Small frequent meals 2. Push fluids 3. Monitor sugars frequently today and tomorrow 4. Follow up with manager traffic to explain new changes. Sepsis Event Note (ED) - Focused Exam Vital Signs: Vital Signs Temp Pulse Resp BP Pulse Ox 08/02/21 10:02 97.6 F 81 18 111/72 99 - My Orders Last 24 Hours: My Active Orders 08/02/21 10:30 Dextrose 5%-0.9% NaCl [Dextrose 5%-Normal Saline] 1,000 ml IV ASDIRECTED - Assessment/Plan Last 24 Hours: My Active Orders 08/02/21 10:30 Dextrose 5%-0.9% NaCl [Dextrose 5%-Normal Saline] 1,000 ml IV ASDIRECTED
[2021-08-02] MEDS ORDERED: Dextrose 5%-0.9% NaCl 1,000 ML IV SCH (10:30)
[2021-08-02 10:46] LABS: CHLORIDE,CL 106 mmol/L (98-107); SODIUM,NA 141 mmol/L (136-145)
[2021-08-02 10:47] LABS: ANION GAP 12.5 mmol/L (5-15)
== END 2021-08-02 13:07 | disposition home or self-care (01) ==
LOC: VM.ED 10:02
DX: E10.649 Type 1 diabetes mellitus with hypoglycemia without coma (principal); Z88.8 Allergy status to other drugs, medicaments and biological substances
CPT/HCPCS: 36415; 80053; 81001; 82947; 84484; 85025; 86140; 96374; 99285; J2405; J7042; 99284

== ENCOUNTER 2023-05-23 14:03 | Emergency (ER) | payer OTHER, BC | END 2023-05-23 16:11 | disposition home or self-care (01) | LOC: VM.ED 14:03 | DX: S93.602A Unspecified sprain of left foot, initial encounter (principal); E10.9 Type 1 diabetes mellitus without complications; Z88.8 Allergy status to other drugs, medicaments and biological substances; Z88.1 Allergy status to other antibiotic agents; Z79.84 Long term (current) use of oral hypoglycemic drugs; Y93.01 Activity, walking, marching and hiking | CPT/HCPCS: 73630-LT; 99283 ==

== ENCOUNTER 2023-08-29 22:28 | Emergency (ER) | payer BC, OTHER ==
[2023-08-29] MEDS ORDERED: Sodium Chloride 0.9% 10 ML Syringe FLUSH PRN (22:53)
[2023-08-29] MEDS: Lactated Ringers 1,000 ML IV ONE (22:55)
[2023-08-29 23:19] LABS: BASOPHILS PERCENT AUTO 0.3 % (0.2-1.2); EOSINOPHILS PERCENT AUTO 0.3 % (0.0-4.0); HEMATOCRIT 41.5 % (33.0-47.0); HEMOGLOBIN 14.7 g/dL (12.0-16.0); IMMATURE GRAN ABSOLUTE AUTO 0.01 x10^3/uL (0.00-0.07); LYMPHOCYTES ABSOLUTE AUTO 1.4 x10^3/uL (1.0-4.8); LYMPHOCYTES PERCENT AUTO 11.9 % (25.0-50.0); MEAN CORPUSCULAR HEMOGLOBIN 33.9 pg (26.0-32.0); MEAN CORPUSCULAR HGB CONC 35.4 g/dL (32.0-36.0); MEAN CORPUSCULAR VOLUME 95.8 fL (78.0-93.0); MONOCYTES ABSOLUTE AUTO 1.2 x10^3/uL (0.0-0.8); MONOCYTES PERCENT AUTO 10.1 % (2.0-11.0); NEUTROPHILS ABSOLUTE AUTO 8.9 x10^3/uL (1.8-7.7); NEUTROPHILS PERCENT AUTO 77.3 % (50.0-80.0); PLATELET COUNT,PLT 297 x10^3/uL (130-400); RED BLOOD CELL COUNT 4.33 x10^6/uL (4.00-5.50); WHITE BLOOD CELL COUNT,WBC 11.5 x10^3/uL (4.0-10.0)
[2023-08-29] MEDS: Orphenadrine 60 MG/2 ML Inj IM ONE (23:40)
[2023-08-29] MEDS: HYDROmorphone 0.5 MG/0.5 ML Syringe IVPUSH ONE (23:41)
[2023-08-29 23:59] LABS: A/G RATIO 1.03; ALBUMIN 4.1 g/dL (3.4-5.0); BILIRUBIN TOTAL 0.6 mg/dL (0.2-1.0); C-REACTIVE PROTEIN 0.87 mg/dL (<=0.30); CALCIUM 10.2 mg/dL (8.5-10.1); CREATININE 1.3 mg/dL (0.55-1.02); EST CRCL DRUG DOSING (CG) 56.87 mL/min; MAGNESIUM 2.1 mg/dL (1.8-2.4); PHOSPHORUS 3.2 mg/dL (2.6-4.7); POTASSIUM,K 4.2 mmol/L (3.5-5.1); PROTEIN TOTAL,TP 8.1 g/dL (6.4-8.2); TSH ULTRASENSITIVE 1.008 uIU/mL (0.358-3.74)
[2023-08-30 00:02] LABS: ANION GAP 15.2 mmol/L (5-15)
[2023-08-30] MEDS: Lactated Ringers 1,000 ML IV ONE (00:02)
== END 2023-08-30 00:55 | disposition home or self-care (01) ==
LOC: VM.ED 22:28
DX: M62.82 Rhabdomyolysis (principal); T50.995A Adverse effect of other drugs, medicaments and biological substances, initial encounter; E10.9 Type 1 diabetes mellitus without complications; Z88.1 Allergy status to other antibiotic agents; Z88.8 Allergy status to other drugs, medicaments and biological substances
CPT/HCPCS: 80053; 82550; 83735; 84100; 84443; 85025; 86140; 96360; 96361; 96372; 99284; 99284-25; J2360; J7120

== ENCOUNTER 2024-09-18 15:51 | Emergency (ER) | payer BC, OTHER ==
[2024-09-18] MEDS ORDERED: Ondansetron 4 MG/2 ML SDV IVPUSH ONE (16:21)
[2024-09-18] MEDS: Acetaminophen 500 MG Tab PO ONE (16:34)
[2024-09-18] MEDS: Take Home: Ondansetron 4 MG Tab.DIS, 5 Tab Pack PO ONE (16:36)
== END 2024-09-18 16:43 | disposition home or self-care (01) ==
LOC: VM.ED 15:51
DX: H81.12 Benign paroxysmal vertigo, left ear (principal); J06.9 Acute upper respiratory infection, unspecified; B97.89 Other viral agents as the cause of diseases classified elsewhere; E10.9 Type 1 diabetes mellitus without complications; Z79.4 Long term (current) use of insulin; Z79.899 Other long term (current) drug therapy
CPT/HCPCS: 99283; A9270-GY; Q0162